=== PATIENT | female | born 1995 | race Caucasian/White ===

== ENCOUNTER 2023-05-14 14:53 | Emergency (ER) | payer MEDICAID ==
[~2023-05-14] VITALS: Ht 152.4 cm; Wt 90.7 kg
[2023-05-14 14:59] VITALS: BP 150/94; PULSE 119; RESP 22; TEMP 98.4; O2SAT 99
[2023-05-14] MEDS ORDERED: LORazepam 1 MG TAB PO ONE (16:50)
[2023-05-14] MEDS ORDERED: CYANOCOBALAMIN 1000 MCG/ML VIAL IM ONE (16:50)
[2023-05-14] MEDS ORDERED: ONDANSETRON 4 MG ODT PO ONE (16:50)
[2023-05-14 17:15] LABS: BASOPHILS # (AUTO) 0.1 K/uL (0.00-0.22); BASOPHILS % (AUTO) 0.8 % (0.0-2.0); EOSINOPHILS # (AUTO) 0.1 K/uL (0-0.4); EOSINOPHILS % (AUTO) 0.8 % (0.0-4.0); HEMATOCRIT 37.2 % (36-48); HEMOGLOBIN 12.9 g/dL (12.0-16.0); LYMPHOCYTES # (AUTO) 3.5 K/uL (2.5-16.5); LYMPHOCYTES % (AUTO) 25.1 % (20.5-51.1); MEAN CORPUSCULAR HEMOGLOBIN 32 pg (27-31); MEAN CORPUSCULAR HGB CONC 35 g/dL (33-37); MEAN CORPUSCULAR VOLUME 91.2 fL (80-94); MONOCYTES # (AUTO) 0.6 K/uL (0.8-1.0); NEUTROPHILS # (AUTO) 9.6 K/uL (1.8-7.7); NEUTROPHILS % (AUTO) 69.3 % (42.2-75.2); PLATELET COUNT (AUTO) 392 K/uL (140-450); RED BLOOD CELL COUNT(AUTO) 4.08 MIL/uL (4.20-5.40); RED CELL DISTRIBUTION WIDTH 16.1 % (11.6-13.7); WHITE BLOOD COUNT (AUTO) 13.8 K/uL (4.8-10.8)
[2023-05-14 17:43] LABS: ANION GAP 17.3 (8-16); CALCIUM 9.2 mg/dL (8.5-10.1); CARBON DIOXIDE 23.5 mmol/L (21-32); CREATININE 0.8 mg/dL (0.6-1.3); POTASSIUM 3.8 mmol/L (3.5-5.1)
[2023-05-14 17:45] LABS: APPEARANCE,URINE CLEAR (CLEAR); BILIRUBIN,URINE NEGATIVE (NEGATIVE); BLOOD, URINE NEGATIVE (NEGATIVE); COLOR,URINE YELLOW (YELLOW); LEUKOCYTE ESTERASE ,URINE NEGATIVE (NEGATIVE); NITRITE, URINE NEGATIVE (NEGATIVE); PROTEIN,URINE NEGATIVE (NEGATIVE); UGLUCOSE NEGATIVE (NEGATIVE); UROBILINOGEN,URINE 0.2 EU/dL (0.2 - 1)
[2023-05-14 17:49] LABS: ALBUMIN 3.9 g/dL (3.4-5.0); BILIRUBIN,DIRECT 0.1 mg/dL (0.0-0.3); TOTAL BILIRUBIN 0.3 mg/dL (0.0-1.0); TOTAL PROTEIN, SERUM 9.1 g/dL (6.4-8.2)
[2023-05-14] MEDS ORDERED: LORA-476 PO (18:31)
[2023-05-14] MEDS ORDERED: VITB12 PO (18:31)
[2023-05-14] MEDS ORDERED: ONDA-188 PO (18:31)
[2023-05-14 18:56] VITALS: BP 123/75; PULSE 112; RESP 19; TEMP 97.8; O2SAT 97
== END 2023-05-14 18:56 | disposition home or self-care (01) ==
LOC: MED 14:53
DX: F19.139 Other psychoactive substance abuse with withdrawal, unspecified (principal); F18.10 Inhalant abuse, uncomplicated; Z79.899 Other long term (current) drug therapy; Z88.6 Allergy status to analgesic agent
CPT/HCPCS: 36415; 80048; 80076; 81003; 81025; 82607; 85025; 96372; 99283; J3420; Q0162

== ENCOUNTER 2023-05-16 11:09 | Emergency (ER) | payer MEDICAID ==
[~2023-05-16] VITALS: Ht 165.1 cm; Wt 81.6 kg
[~2023-05-16 11:09] MED LIST: LORA-476 PO; ONDA-188 PO; VITB12 PO
[2023-05-16 11:24] VITALS: BP 132/91; PULSE 105; RESP 19; TEMP 97.8; O2SAT 96
[2023-05-16] MEDS ORDERED: HYDROXYZINE HYDROCHLORIDE 25 MG TAB PO ONE (13:35)
[2023-05-16] MEDS ORDERED: ATA25 PO (13:41)
[2023-05-16 14:49] VITALS: BP 131/93; PULSE 94; RESP 14; TEMP 97.8; O2SAT 98
== END 2023-05-16 14:19 | disposition home or self-care (01) ==
LOC: MED 11:09
DX: F41.9 Anxiety disorder, unspecified (principal); F12.90 Cannabis use, unspecified, uncomplicated; F11.10 Opioid abuse, uncomplicated; Z79.899 Other long term (current) drug therapy
CPT/HCPCS: 99283

== ENCOUNTER 2023-06-15 00:37 | Emergency (ER) | payer MEDICAID ==
[~2023-06-15] VITALS: Ht 152.4 cm; Wt 86.2 kg
[~2023-06-15 00:37] MED LIST changes: +ATA25 PO
[2023-06-15 00:49] VITALS: BP 132/89; PULSE 156; RESP 20; TEMP 99.2; O2SAT 96
[2023-06-15] MEDS ORDERED: HYDR25CA1 PO (01:25)
[2023-06-15] MEDS ORDERED: ATI.5 PO (01:25)
[2023-06-15] MEDS: LORazepam 2 MG/ML VIAL IM ONE (01:55)
== END 2023-06-15 02:00 | disposition home or self-care (01) ==
LOC: MED 00:37
DX: F18.10 Inhalant abuse, uncomplicated (principal); F41.9 Anxiety disorder, unspecified; Z79.899 Other long term (current) drug therapy; Z88.6 Allergy status to analgesic agent
CPT/HCPCS: 96372; 99283; J2060

== ENCOUNTER 2023-07-01 13:13 | Emergency (ER) | payer MEDICAID ==
[~2023-07-01] VITALS: Ht 152.4 cm; Wt 99.8 kg
[~2023-07-01 13:13] MED LIST changes: +ATI.5 PO; +HYDR25CA1 PO
[2023-07-01 13:41] VITALS: BP 138/80; PULSE 87; RESP 18; TEMP 98.1; O2SAT 100
[2023-07-01] MEDS ORDERED: DICL20GE TP (14:44)
== END 2023-07-01 14:51 | disposition home or self-care (01) ==
LOC: MED 13:13
DX: F41.0 Panic disorder [episodic paroxysmal anxiety] (principal); Z88.6 Allergy status to analgesic agent; Z79.899 Other long term (current) drug therapy
CPT/HCPCS: 81025; 93005; 99283

== ENCOUNTER 2023-10-13 06:20 | Emergency (ER) | payer MEDICAID ==
[~2023-10-13] VITALS: Ht 152.4 cm; Wt 86.2 kg
[~2023-10-13 06:20] MED LIST changes: +DICL20GE TP
[2023-10-13 06:27] VITALS: BP 127/85; PULSE 122; RESP 22; TEMP 97.8; O2SAT 99
[2023-10-13 06:55] VITALS: O2SAT 97
[2023-10-13] MEDS: ONDANSETRON 4 MG ODT PO ONE (07:05)
[2023-10-13 08:42] VITALS: BP 125/82; PULSE 88; RESP 16; TEMP 98; O2SAT 99
== END 2023-10-13 08:42 | disposition home or self-care (01) ==
LOC: MED 06:20
DX: R11.2 Nausea with vomiting, unspecified (principal); F17.200 Nicotine dependence, unspecified, uncomplicated; Z79.1 Long term (current) use of non-steroidal anti-inflammatories (NSAID); Z79.899 Other long term (current) drug therapy
CPT/HCPCS: 81002; 81025; 99283; Q0162